=== PATIENT | female | born 1990 | race Caucasian/White ===

== ENCOUNTER 2017-08-06 11:06 | Emergency (ER) | payer OTHER ==
[~2017-08-06] VITALS: Ht 149.9 cm; Wt 59.0 kg
[2017-08-06 11:06] VITALS: BP 115/71
[2017-08-06 11:46] LABS: APPEARANCE,URINE Clear (CLEAR); BILIRUBIN,URINE Negative (NEGATIVE); BLOOD, URINE Negative Ery/uL (NEGATIVE); COLOR,URINE Orange (YELLOW); KETONES,URINE Negative (NEGATIVE); LEUKOCYTE ESTERASE ,URINE Small (NEGATIVE); NITRITE, URINE Positive (NEGATIVE); PROTEIN,URINE 30 mg/dl (NEGATIVE); UGLUCOSE 100 MG/DL mg/dL (NEGATIVE)
[2017-08-06 12:10] LABS: RBC,URINE 0-2 /HPF (0-2)
[2017-08-06 12:11] LABS: BACTERIA,URINE Moderate /HPF (None Seen); SQUAMOUS EPITHELIAL CELL,UR Moderate /HPF (None Seen)
== END 2017-08-06 12:29 | disposition home or self-care (01) ==
LOC: ER 11:10
DX: N39.0 Urinary tract infection, site not specified (principal); Z88.0 Allergy status to penicillin
CPT/HCPCS: 81001; 84703; 87077; 87086; 87186; 99284; A4606; Z7610; 81000-TC

== ENCOUNTER 2018-01-16 10:25 | Emergency (ER) | payer OTHER ==
[~2018-01-16] VITALS: Ht 149.9 cm; Wt 70.3 kg
[2018-01-16 10:25] VITALS: BP 109/75
== END 2018-01-16 10:39 | disposition home or self-care (01) ==
LOC: ER 10:29
DX: S90.862A Insect bite (nonvenomous), left foot, initial encounter (principal); S90.861A Insect bite (nonvenomous), right foot, initial encounter; Z88.0 Allergy status to penicillin; Z60.2 Problems related to living alone; W57.XXXA Bitten or stung by nonvenomous insect and other nonvenomous arthropods, initial encounter; Y93.89 Activity, other specified; Y92.89 Other specified places as the place of occurrence of the external cause; Y99.2 Volunteer activity
CPT/HCPCS: A4606; Z7610